=== PATIENT | male | born 1990 | race Caucasian/White ===

== ENCOUNTER 2021-06-19 03:45 | Observation (INO) | payer OTHER, SELFPAY ==
[2021-06-19] VITALS (14 sets, daily range): BP systolic 113–151; BP diastolic 64–94; PULSE 70–94; RESP 14–20; TEMP 36.2–37.7; O2SAT 96–100; BMI 29.1
--- NOTE | ~2021-06-19 | XR_ITS ---
XR retrograde pyelo w/stent RT DATE: 06/19/2021 17:18 INDICATION: Right stone extraction and stent placement TECHNIQUE: 06/19/[address] abdomen pelvis COMPARISON: 8 spot C-arm views. 29.8 seconds fluoroscopy time 367.82 radcm2 FINDINGS: Cystoscopic approach for right retrograde pyelogram, revealing mild to moderate right hydro nephrosis. Placement of a right internal urinary stent, proximal pigtail overlying the right renal pelvis, the d istal pigtail overlying the lower right pelvic area. IMPRESSION: Right internal urinary stent placement Reviewed, dictated and finalized at [facility]. Reviewed, dictated and finalized at [facility].
--- NOTE | ~2021-06-19 | CT_ITS ---
EXAMINATION: CT abdomen pelvis wo con DATE: 06/19/2021 04:08 INDICATION: Right flank pain and right scrotal pain. TECHNIQUE: Computed tomography (CT) of the abdomen and pelvis was performed without intravenous contr ast. Automated exposure control and iterative reconstruction technique were employed. The dose-length product was 756.70 mGy-cm. COMPARISON: 10/27/2016 FINDINGS: Lung bases are clear. Heart size is normal. No pericardial or pleural effusion. Focal hepatic steatos is along the ligamentum teres. Gallbladder, spleen, pancreas and bilateral adrenal glands are normal. 1 mm nonobstructing stone at the upper pole of the normal left kidney. There is an obstructing 3 mm stone in the mid to distal right ureter with mild to moderate right hydroureteronephrosis. Bladder is normal. Small bilateral hydroceles. Bowels including the appendix are normal. No free intraperitonea l gas or fluid. No pathologically enlarged abdominal or pelvic lymphadenopathy. 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 Bones are otherwise unremarkable. IMPRESSION: 1. Lateral nephrolithiasis with obstructing 3 mm right ureteral stone with mild to moderate right hyd roureteronephrosis. Reviewed, dictated and finalized at [facility]. IMPRESSION: 1. Lateral nephrolithiasis with obstructing 3 mm right ureteral stone with mild to moderate right hydroureteronephrosis.
--- NOTE | ~2021-06-19 | XR_ITS ---
EXAMINATION: XR abdomen/kub 1V DATE: 06/19/2021 07:13 INDICATION: Right ureteral stone presenting with right flank pain TECHNIQUE: A supine view of the abdomen on 2 radiographs was obtained. COMPARISON: CT dated 06/19/2021 FINDINGS: The 3 mm stone seen in the mid to distal right ureter is unable to be identified on the prior study. Correlation with prior CT suggests this could be due to its small size and superimposition over the s acrum. An additional tiny stone seen at the upper pole of the left kidney on prior CT is also indisce rnible on the plain radiographs. Normal bowel gas pattern. Bones are unremarkable. IMPRESSION: 1. Small renal stones evident at the upper pole of the left kidney and in the right ureter on prior C T are indistinguishable on the current radiographs. Reviewed, dictated and finalized at [facility]. IMPRESSION: 1. Small renal stones evident at the upper pole of the left kidney and in the r ight ureter on prior CT are indistinguishable on the current radiographs.
--- NOTE | 2021-06-19 03:56 | ED.ABDPAIN ---
HPI - Abdominal Pain General Chief Complaint: Abdominal Pain Stated Complaint: right side pain, testicular pain, vomiting Time Seen by Provider: 06/19/21 03:48 History of Present Illness HPI narrative: 30-year-old male with no significant past medical history complaining of sudden onset of right flank pain radiating to his right testicle. Also complains of sudden onset of vomiting. No fever, no hematemesis, no previous history of same. No scrotal swelling. No erythema, pain worse with nothing, improves with nothing. States this may be like when he had a renal stone before but last time he did radiated to his testicle. Pain is sharp, constant, colicky. Related Data Allergies Allergy/AdvReac Type Severity Reaction Status Date / Time No Known Allergies Allergy Verified 06/19/21 14:06 Review of Systems Review of Systems: CONSTITUTIONAL: no fever, no weight loss, no confusion EYES: no vision changes, no eye pain ENT: no rhinorrhea, no sore throat, no difficulty swallowing CARDIOVASCULAR: no chest pain, no leg edema, no palpitations RESPIRATORY: no cough, no shortness of breath, no hemoptysis GASTROINTESTINAL: positive for abdominal pain, positive for nausea, positive for vomiting, no diarrhea GENITOURINARY: R flank pain, no dysuria, no hematuria, no scrotal swelling SKIN: no rash, no jaundice MUSCULOSKELETAL: no back pain, no trauma. NEUROLOGIC: No headache, no dizziness, no focal weakness PSYCHIATRIC: No hallucinations, no suicidal ideation [facility] Past Medical History Medical History DVT (deep venous thrombosis) Social History Social History Smoking packs per day: 1 Smoking cigarettes per day: 20.0 Years smoked: 10 Smoking pack-years: 10.00 Smoking status: Current every day smoker Tobacco type: cigarettes Substance use: current Substance use type: marijuana Spiritual care concerns: No Exam Narrative: General: alert, afebrile, answering all questions appropriately Head: normocephalic, atraumatic Eyes: EOMI bilaterally, anicteric, no injection ENT: moist mucous membranes, oropharynx patent, no rhinorrhea Neck: supple, trachea midline, no JVD Chest: equal chest rise bilaterally, no chest wall trauma noted Abd: soft, non-distended, non-tender, no rebound, no gaurding, negative Miranda's, no hernia or abdominal masses noted : no CVA tenderness B, bladder non-distended; scrotal sac without erythema, no epididymal tend, no masses, no bulges Back: no lumbar bony tenderness. paraspinal muscles without spasm EXT: no deformity noted, moving all extremities equally Skin: warm, dry, no pallor Neuro: alert, oriented x 3; CN 2-12 grossly intact, no dysarthria Psych: affect appropriate, though content normal Course Course Emergency Course: Patient has received Toradol, morphine and fentanyl without relief of pain. Unable to tolerate p.o. currently. Pain not resolved. CT abdomen pelvis with ureteral stone in the mid ureter mid to distal ureter with mild hydro and a WBC of 16. Renal function is normal, creatinine is normal. However will bring patient in for pain control and possible urology consult. Patient aware and agrees with plan Reevaluation(s) Reevaluation #1: Patient still in pain unable to tolerate p.o. despite multiple medications including Zofran. Plan is to admit patient for pain control, UTI and renal colic Date: 06/19/21 Time: 06:12 Reevaluation #2: Spoke with Dr Salinas who will admit patient Date: 06/19/21 Time: 06:54 Reevaluation #3: Spoke with Dr Glover who wiill consult on patient, will keep patient NPO and get KB Date: 06/19/21 Time: 06:55 Vital Signs Vital signs: Vital Signs Temperature 36.6 C 06/19/21 03:54 Pulse Rate 70 06/19/21 03:54 Respiratory Rate 18 06/19/21 03:54 Blood Pressure 115/84 06/19/21 03:54 Pulse Oximetry 100 06/19/21 03:54 Temperature
[2021-06-19] MEDS: KETOROLAC 30 MG/ML VIAL (*BKC) IV PUSH (04:10)
[2021-06-19] MEDS: SODIUM CHLORIDE 0.9% IV 1,000 ML 999 ML IV CONT ×2 (04:10→05:38)
[2021-06-19] MEDS: ONDANSETRON INJ 4 MG/2 ML VIAL IV PUSH ×2 (04:10→08:04)
[2021-06-19 04:21] LABS: Basophils Absolute Auto 0.1 K/mm3 (0.0-0.1); Basophils Percent Auto 0.4 % (0.2-1.2); Eosinophils Absolute Auto 0.3 K/mm3 (0-0.3); Eosinophils Percent Auto 1.7 % (0-4.4); Hematocrit 43.7 % (42.0-52.0); Hemoglobin 15.1 g/dL (14.0-18.0); Immature Granulocyte Absolute 0.07 K/mm3 (0.00-0.031); Immature Granulocyte Percent A 0.4 % (0-0.5); Lymphocytes Absolute Auto 3.25 K/mm3 (0.9-3.2); Mean Corpuscular HGB Conc 34.6 g/dl (32-36); Mean Corpuscular Volume 89.7 fl (80-100); Mean Platelet Volume 9.9 fl (7.4-10.4); Neutrophils Absolute Auto 11.7 K/mm3 (1.3-6.7); Neutrophils Percent Auto 71.5 % (45.5-73.1); Platelet Count Result 346 k/mm3 (150-375); Red Blood Count 4.87 M/mm3 (4.6-6.20); Red Cell Distribution Width 12.2 % (11.5-14.5); White Blood Count 16.3 K/mm3 (4.5-10.0)
[2021-06-19] MEDS: MORPHINE SULFATE (*CRX) 4 MG/ML INJ IV PUSH ×6 (04:42→21:02)
[2021-06-19 05:02] LABS: Alanine Aminotransferase 33 U/L (4-50); Albumin Level 4.5 g/dL (3.5-5.1); Alkaline Phosphatase 86 U/L (38-126); Anion Gap 12 mmol/L (8-16); Aspartate Amino Transferase 23 U/L (17-59); Bilirubin,Total 0.6 mg/dL (0.2-1.3); Blood Urea Nitrogen 9 mg/dL (9-20); Calcium 9.6 mg/dL (8.4-10.2); Carbon Dioxide 24 mmol/L (22-30); Chloride 107 mmol/L (98-107); Estimated CRCL calculation 116 ml/min; Estimated Glomerular Filt Rate > 60; Glucose 146 mg/dL (65-110); Lipase 134 U/L (23-300); Potassium 3.6 mmol/L (3.4-5.0); Sodium 143 mmol/L (137-145)
[2021-06-19 05:54] LABS: Add Urine Microscopic? YES; Appearance Urine Clear (Clear); Bilirubin Urine Negative (Negative); Blood Urine 1+ (Negative); Color Urine Yellow (Yellow); Glucose Urine UA Negative (Negative); Ketones Urine Negative (Negative); Leukocyte Esterase Ur Negative LEU/UL (Negative); Mucus Urine Rare /lpf; Nitrate Urine Negative (Negative); Protein Urine Negative (Negative); RBC Urine 21-50 /hpf (0-2); Specific Grav Ur 1.015 (1.001-1.035); Urobilinogen Urine Negative mg/dL (<2.0); WBC Urine 0-3 /hpf
[2021-06-19] MEDS: fentaNYL CITRATE INJ (*CRX) 100 MCG/2 ML VIAL 25 MCG IV PUSH ×3 (05:59→18:00)
[2021-06-19] MEDS: HYDROmorphone HCL INJ (*CRX) 1 MG/ML SYR 0.5 MG IV PUSH (07:19)
[2021-06-19] MEDS: SODIUM CHLORIDE 0.9% IV 1,000 ML 125 ML IV CONT (08:15)
--- NOTE | 2021-06-19 09:21 | ADMGEN ---
This patient, Sanford Dickinson, was admitted to [facility] Surg Room 313-01. Patient/family oriented to hospital policies and general routines including ID bracelet, bed and alarms, visiting hours, pain management, procedures, bathroom and other care routines, personal items, smoking policy, room service/diet, and visiting hours. Information on how to activate the Rapid Response Team has been discussed. Patient/Family are encouraged to report perceived risks to care and to ask questions if they do not understand what they are told or what they should do.
--- NOTE | 2021-06-19 12:03 | PC.NURSE ---
4mg of morphine wasted with MARIA Wallis. Too early to give pain medication. Unable to return due to being opened and drawn up.
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
--- NOTE | 2021-06-19 14:03 | WPDHPUPDATE1 ---
History and Physical Update Update Date/Time: 06/19/21 14:03 History and Physical has been reviewed, including an updated exam of the patient. There are NO changes in the patient's condition. Risks, benefits, and alternatives have been discussed and questions answered. Patient agrees to proceed with procedure.
--- NOTE | 2021-06-19 15:14 | PM.SD2 ---
Same Day Admit/Disch: HPI History of Present Illness Chief complaint: renal colic Narrative: Sanford Dickinson is a 30 year old male admitted with R sided renal colic hurting in the right flank radiating to his scrotum. Pt wcc are high not uti is not likley possibly stress related leucocytosis. BMP is nl, CT scan shows a 3mm right distal ureteral stone with moderate right proximal hydronephrosis and a left punctate non obstructive stone. Pt is going down for Cystoscopy, right ureteroscopy with stone extraction possible stent placement, right retrograde pyelogram, possible holmium laser. Pt can be discharged home after the procedure with mild pain medications and follow up with urology apt. [facility] Social History Social History Smoking packs per day: 1 Smoking cigarettes per day: 20.0 Years smoked: 10 Smoking pack-years: 10.00 Smoking status: Current every day smoker Tobacco type: cigarettes Substance use: current Substance use type: marijuana Spiritual care concerns: No Same Day Admit/Disch: Med Pre-admit Medications Home Medications Medication Instructions Recorded Confirmed Type No Home Medications 06/19/21 06/19/21 History Exam Const: General: well developed Nutritional Appearance: well nourished HENMT: Head: normocephalic Eyes: General: appearance normal, both eyes and all related structures Pupils: Equal, round and reactive pupils present Neck: Neck: supple Chest: Chest palpation & inspection: normal inspection of the chest Resp: Effort & Inspection: normal respiratory effort Auscultation: clear to auscultation bilaterally Cardio: Jugular venous distension: no JVD Rhythm: regular rhythm Heart sounds: S1 normal heart sound present and S2 normal heart sound present GI: Inspection: normal to inspection GI Palp: No abdominal tenderness, Yes Soft to palpation and No Tenderness to palpation present (GI) Auscultation: normal bowel sounds : General: Yes CVA tenderness (R FLANK ) Skin: General skin exam: normal color and dry skin Neuro: Cranial nerves: Yes CN's II-XII intact bilaterally and Yes Equal, round and reactive pupils present Cognition (Neuro): normal cognition Speech: normal speech Motor exam (neuro): 5/5 motor strength present throughout Extrem: General: normal to inspection Psych: Appearance: grossly normal Mental Status: mental status grossly normal DS: Data Data Completed and Pending Labs on day of discharge: Labs from last 24 hours 06/19/21 06/19/21 06/19/21 05:27 03:57 03:57 WBC 16.3 H RBC 4.87 Hgb 15.1 Hct 43.7 MCV 89.7 MCH 31.0 MCHC 34.6 RDW 12.2 Plt Count 346 MPV 9.9 Immature Gran % (Auto) 0.4 Neut % (Auto) 71.5 Lymph % (Auto) 20.0 [place] % (Auto) 6.0 Eos % (Auto) 1.7 Baso % (Auto) 0.4 Lymph # (Auto) 3.25 H [place] # (Auto) 1.0 H Eos # (Auto) 0.3 Baso # (Auto) 0.1 Abs Immat Gran (auto) 0.07 H Absolute Neuts (auto) 11.7 H Absolute Nucleated RBC 0.0 Nucleated RBC % 0.0 Sodium 143 Potassium 3.6 Chloride 107 Carbon Dioxide 24 Anion Gap 12 BUN 9 Creatinine 0.80 Estim Creat Clear Calc 116 Estimated GFR > 60 Glucose 146 H Calcium 9.6 Total Bilirubin 0.6 AST 23 ALT 33 Alkaline Phosphatase 86 Total Protein 7.0 Albumin 4.5 Lipase 134 Urine Color Yellow Urine Appearance Clear Urine pH 6.0 Ur Specific [place] 1.015 Urine Protein Negative Urine Glucose (UA) Negative Urine Ketones Negative Ur Blood (Man) 1+ H Urine Nitrate Negative Urine Bilirubin Negative Urine Urobilinogen Negative Leukocyte Esterase Rfl Negative Urine RBC 21-50 H Urine WBC 0-3 Urine Mucus Rare DS: Summary Time Spent with Patient Time attestation: Total time spent providing and/or coordinating discharge services:45 minutes on day of dischrage
--- NOTE | 2021-06-19 16:27 | WPDANESEPPF ---
Anes - Initial Pre Proc Eval Procedure: Operation Date: 06/19/21 15:30 Proposed Procedures p Cystoscopy, Right Retrograde Pyelogram, Possible Right Ureteroscopy, Possible Right Ureteral Stent Placement, Possible Stone Extraction, Possible Holmium Laser Lithotripsy - Juan Glover MD Date/Time: 06/19/21 16:27 Surgeon: Ivelisse Salinas MD Pre Op Diagnosis: renal colic Patient Data Age: 30 Gender: M Height: 1.83 m Weight: 97.5 kg Last Vital Signs Temp 36.5 C 06/19/21 14:00 Pulse 75 06/19/21 14:00 Resp 18 06/19/21 14:00 BP 113/64 06/19/21 14:00 Pulse Ox 96 06/19/21 14:00 Allergies Allergy/AdvReac Type Severity Reaction Status Date / Time No Known Allergies Allergy Verified 06/19/21 14:06 Home Medications Medication Instructions Recorded Confirmed Type No Home Medications 06/19/21 06/19/21 History Laboratory Tests 06/19/21 06/19/21 06/19/21 03:57 03:57 05:27 WBC 16.3 K/mm3 H K/mm3 (4.5-10.0) RBC 4.87 M/mm3 M/mm3 (4.6-6.20) Hgb 15.1 g/dL g/dL (14.0-18.0) Hct 43.7 % % (42.0-52.0) MCV 89.7 fl fl (80-100) MCH 31.0 pg pg (26-34) MCHC 34.6 g/dl g/dl (32-36) RDW 12.2 % % (11.5-14.5) Plt Count 346 k/mm3 k/mm3 (150-375) MPV 9.9 fl fl (7.4-10.4) Immature Gran % (Auto) 0.4 % % (0-0.5) Neut % (Auto) 71.5 % % (45.5-73.1) Lymph % (Auto) 20.0 % % (18.3-44.2) [place] % (Auto) 6.0 % % (2.6-8.5) Eos % (Auto) 1.7 % % (0-4.4) Baso % (Auto) 0.4 % % (0.2-1.2) Lymph # (Auto) 3.25 K/mm3 H K/mm3 (0.9-3.2) [place] # (Auto) 1.0 K/mm3 H K/mm3 (0.1-0.6) Eos # (Auto) 0.3 K/mm3 K/mm3 (0-0.3) Baso # (Auto) 0.1 K/mm3 K/mm3 (0.0-0.1) Abs Immat Gran (auto) 0.07 K/mm3 H K/mm3 (0.00-0.031) Absolute Neuts (auto) 11.7 K/mm3 H K/mm3 (1.3-6.7) Absolute Nucleated RBC 0.0 K/mm3 K/mm3 (0.0-0.012) Nucleated RBC % 0.0 % % (0.0-0.2) Sodium 143 mmol/L mmol/L (137-145) Potassium 3.6 mmol/L mmol/L (3.4-5.0) Chloride 107 mmol/L mmol/L (98-107) Carbon Dioxide 24 mmol/L mmol/L (22-30) Anion Gap 12 mmol/L mmol/L (8-16) BUN 9 mg/dL mg/dL (9-20) Creatinine 0.80 mg/dL mg/dL (0.7-1.3) Estim Creat Clear Calc 116 ml/min ml/min Estimated GFR > 60 (59 - ) Glucose 146 mg/dL H mg/dL (65-110) Calcium 9.6 mg/dL mg/dL (8.4-10.2) Total Bilirubin 0.6 mg/dL mg/dL (0.2-1.3) AST 23 U/L U/L (17-59) ALT 33 U/L U/L (4-50) Alkaline Phosphatase 86 U/L U/L (38-126) Total Protein 7.0 g/dL g/dL (6.3-8.2) Albumin 4.5 g/dL g/dL (3.5-5.1) Lipase 134 U/L U/L (23-300) Urine Color Yellow (Yellow) Urine Appearance Clear (Clear) Urine pH 6.0 (5.0-9.0) Ur Specific [place] 1.015 (1.001-1.035) Urine Protein Negative mg/dL mg/dL (Negative) Urine Glucose (UA) Negative mg/dL mg/dL (Negative) Urine Ketones Negative mg/dL mg/dL (Negative) Ur Blood (Man) 1+ H (Negative) Urine Nitrate Negative (Negative) Urine Bilirubin Negative (Negative) Urine Urobilinogen Negative mg/dL mg/dL (<2.0) Leukocyte Esterase Rfl Negative ARELIS/UL ARELIS/UL (Negative) Urine RBC 21-50 /hpf H /hpf (0-2) Urine WBC 0-3 /hpf /hpf Urine Mucus Rare /lpf /lpf Patient hx anesthesia problems: none Family hx anesthesia problems: none Results Review: All pre-operative results and documents have been reviewed as part of the pre-operative evaluation. [facility] Past Medical History Medical History (Reviewed 06/19/21 @ 16:27 by Tani
[2021-06-19] MEDS: LACTATED RINGERS 1,000 ML 30 ML IV CONT (16:30)
[2021-06-19] MEDS: LIDOCAINE HCL 2% GEL UROJET 10 ML PKG MUCOUS MEM (16:50)
--- NOTE | 2021-06-19 17:13 | W.PM.PROC2 ---
Procedure Note - Detailed Date of Procedure 06/19/21 Pre-op Diagnosis renal colic, 3-4 mm right mid ureteral calculus Post-op Diagnosis same Procedure Performed Cystoscopy, right retrograde pyelogram, right ureteroscopy with stone extraction, right ureteral stent placement 4.8 [place] contour Surgeon Juan Glover MD Anesthesia general Description of Procedure Patient is taken to the operative suite correctly identified. Once anesthesia was obtained was placed in dorsal lithotomy position and prepped and draped usual sterile fashion. Twenty-two [place] scope was inserted into the bladder. There were no tumors noted. Right ureteral orifice was cannulated with a guidewire. We dilated with an 8/10 dilator and then placed a ureteral access sheath. Mini flexible ureteral scope was inserted. The stone was localized. Using escape basket retrieved as 1 piece. This was sent for analysis. It did appear that there was some mucosal disruption from placement of the ureteral access sheath. We thus did a pyelogram to confirm placement of the stent in the renal pelvis. 4.8 [place] contour stent was then placed with the proximal end coiled in the renal pelvis and the distal in the bladder. Bladder was drained. 2% viscous lidocaine was inserted urethra patient is taken recovery stable condition. He can be discharged home later today if stable otherwise in the morning. Follow-up in 1 week time for stent removal. Call for that appointment. Urine Output 475 Drains Yes Packing No Pathology yes Complications No immediate complications Condition stable Disposition PACU
--- NOTE | 2021-06-19 18:20 | PC.NURSE ---
This patient, Sanford Dickinson, was received from PACU on 06/19/21 at 1820, report received from MARIA Hardy. Patient/family oriented to unit policies and routines
[2021-06-20 06:00] VITALS: BP 125/79; PULSE 76; RESP 18; TEMP 36.4; O2SAT 100
[2021-06-20] MEDS: IBUPROFEN 600 MG TABLET PO (08:37)
[2021-06-20] MEDS: OXYBUTYNIN CHLORIDE 5 MG TABLET PO (08:39)
--- NOTE | 2021-06-20 09:19 | WPDANESPN ---
Anes - Prog Note Post-Op Date/Time: 06/20/21 09:19 Cardiovascular status: normal Respiratory status: normal Airway patency: baseline Mental status: baseline Vital Signs: Last Vital Signs Temp 36.4 C 06/20/21 06:00 Pulse 76 06/20/21 06:00 Resp 18 06/20/21 06:00 BP 125/79 06/20/21 06:00 Pulse Ox 100 06/20/21 06:00 Pain Score (VAS): 0 I/O: Intake & Output 06/19/21 06/20/21 06/20/21 23:59 07:59 15:59 Intake Total 1500 0 Output Total 950 Balance 550 0 Laboratory Tests 06/19/21 03:57 06/19/21 03:57 Post-procedural complaints: none Patient Feedback: Patient satisfied with anesthetic care.
--- NOTE | 2021-06-20 13:07 | WPDUROPN2 ---
Progress Note: A&P Assessment and Plan (1) Ureteral calculus, right: Code(s): N20.1 - Calculus of ureter Status: Acute Assessment and Plan: Patient ok to discharge home, will plan to remove stent next week in the office. Subjective Subjective Date/Time Seen: POD #1 Cystoscopy right retrograde pyelogram, right ureteral stone removal, right stent placement. Patient sitting up on the side of the bed, tolerating pain better with Torodol and Oxybutynin. He is having stent pain with urination that lasts about 20 minutes after with radiation to his scrotum. He is tolerating his diet well and wants to go home. Review of Systems Cardiovascular: Cardiovascular: Denies chest pain Respiratory: Respiratory: Reports no additional respiratory complaints Gastrointestinal: Gastrointestinal: Denies abdominal pain, Denies nausea and Denies vomiting Genitourinary: Genitourinary: Denies hematuria, Reports dysuria, Reports flank pain, Denies urinary frequency, Denies urinary hesitancy and Denies urinary urgency Exam Resp: Effort & Inspection: normal respiratory effort Cardio: Rate: regular rate GI: GI Palp: Yes Soft to palpation and Yes Tenderness to palpation present (GI) (RLQ) : General: Yes CVA tenderness on the right Extrem: General: no edema Objective Data Vital Signs Vital Signs: Vital Signs - 24 hr 06/19/21 14:00 06/19/21 16:18 06/19/21 17:18 Temperature 97.7 F 99.8 F H 97.1 F L Pulse Rate 75 85 94 Respiratory Rate 18 16 20 Blood Pressure 113/64 128/85 130/81 Pulse Oximetry 96 97 99 06/19/21 17:30 06/19/21 17:45 06/19/21 18:00 Temperature Pulse Rate 82 82 89 Respiratory Rate 16 14 16 Blood Pressure 151/94 H 149/87 H 132/76 Pulse Oximetry 100 98 99 06/19/21 18:15 06/19/21 18:41 06/19/21 22:00 Temperature 97.7 F 97.6 F Pulse Rate 86 79 80 Respiratory Rate 16 20 18 Blood Pressure 136/88 147/89 H 115/65 Pulse Oximetry 97 98 98 06/20/21 06:00 Temperature 97.6 F Pulse Rate 76 Respiratory Rate 18 Blood Pressure 125/79 Pulse Oximetry 100 Intake/Output Intake/Output: Intake & Output 06/17/21 06/18/21 06/19/21 06/20/21 23:59 23:59 23:59 23:59 Intake Total 3650 100 Output Total 950 Balance 2700 100 Meds/Results Medications: Active Medications Generic Name Dose Route Start Last Admin Trade Name Freq PRN Reason Stop Dose Admin Ibuprofen 600 mg 06/19/21 18:53 06/20/21 08:37 Ibuprofen 600 Mg Tablet PO 600 mg TID PRN Administration Pain Rated 1-3 Morphine Sulfate 4 mg 06/19/21 07:34 06/19/21 21:02 Morphine Sulfate (*Crx) 4 Mg/Ml Inj IV PUSH 4 mg Q2H PRN Administration Pain Rated 7-10 Ondansetron HCl 4 mg 06/19/21 07:34 06/19/21 08:04 Ondansetron Inj 4 Mg/2 Ml Vial IV PUSH 4 mg Q4H PRN Administration Nausea Oxybutynin Chloride 5 mg 06/20/21 09:43 Oxybutynin Chloride 5 Mg Tablet PO TID PRN Bladder Spasm Radiology Results: ITS Impressions Abdomen X-Ray 06/19/21 07:19 IMPRESSION: 1. Small renal stones evident at the upper pole of the left kidney and in the right ureter on prior CT are indistinguishable on the current radiographs. Abdomen/Pelvis CT 06/19/21 07:50 IMPRESSION: 1. Lateral nephrolithiasis with obstructing 3 mm right ureteral stone with mild to moderate right hydroureteronephrosis. Retrograde Pyelogram 06/19/21 21:53 IMPRESSION: Right internal urinary stent placement
== END 2021-06-20 13:40 | disposition home or self-care (01) ==
LOC: ANHED 07:50 → ANH3MEDSUR 11:32
PROVIDERS: Urology; Admitting Provider Internal Medicine; Emergency Provider Emergency Medicine; Visit Provider Family Medicine
PROC: (CPT 52352; principal; 2021-06-19 15:30)
DX: N13.2 Hydronephrosis with renal and ureteral calculous obstruction (principal); F17.210 Nicotine dependence, cigarettes, uncomplicated; Z86.718 Personal history of other venous thrombosis and embolism
CPT/HCPCS: 52356; 36415; 74018; 74176; 74420; 80053; 81001; 82365; 83690; 85025; 88300; 96361; 96365; 96367; 96375; 96376; 99285; A9270; C1758; C1769; C1894; C2617; G0378; G0379; J0131; J0696; J1170; J1885; J2250; J2270; J2405; J2704; J3010; J7030; J7120; Q9966

== ENCOUNTER 2022-06-16 02:40 | Emergency (ER) | payer OTHER, SELFPAY ==
[2022-06-16] VITALS (7 sets, daily range): BP systolic 126–148; BP diastolic 77–105; PULSE 78–82; RESP 17–22; TEMP 36.6; O2SAT 96–98
--- NOTE | ~2022-06-16 | CT_ITS ---
EXAMINATION: CT abdomen pelvis wo con DATE: 06/16/2022 04:35 INDICATION: Right flank pain TECHNIQUE: Computed tomography (CT) of the abdomen and pelvis was performed without intravenous contr ast. The dose-length product was 843.50 mGy-cm. Automated exposure control and iterative reconstructi on technique were employed. COMPARISON: CT dated 06/19/2021. FINDINGS: Lung bases are unremarkable. No significant pleural or pericardial effusion. The liver, spl een, pancreas, adrenal glands and right kidney are unremarkable. There is a 3 mm left UVJ stone with mild left hydroureteronephrosis. There is left perinephric stranding. There is a nonobstructing 1 mm left renal stone. Nonobstructive bowel gas pattern. No abnormal pelvic masses or fluid collections. N o free air or free fluid. Gallbladder is present. No acute osseous abnormality. IMPRESSION: 1. Left UVJ stone measuring 3 mm with mild left hydroureteronephrosis. Reviewed, dictated and finalized at location A.
--- NOTE | 2022-06-16 03:18 | ED.GENADULT ---
HPI - General Adult General Chief complaint: Abdominal Pain Stated complaint: L testicle pain Time Seen by Provider: 06/16/22 03:10 History of Present Illness HPI narrative: Patient is a 31-year-old gentleman who presents the emergency department with chief complaint of flank pain. The patient reports he has prior history of kidney stones and last one was in June of last year. Patient reports that he had sudden onset of around midnight of severe pain in the left flank radiating to his left testicle patient states the pain is not improved by anything reports that he feels nauseated and vomited in the lobby prior to coming back in the room. Patient reports he is unable to get comfortable in any position reports the pain is not improved by anything. Patient reports this feels exactly like when he had a kidney stone before in the past Related Data Allergies Allergy/AdvReac Type Severity Reaction Status Date / Time No Known Allergies Allergy Verified 06/22/21 09:13 Review of Systems Review of Systems: A 10 system review of systems was completed on the patient and is negative except for what is stated in the HPI. Nursing and ancillary documentation was reviewed. [facility] Past Medical History Medical History DVT (deep venous thrombosis) Social History Social History Smoking packs per day: 1 Smoking cigarettes per day: 20.0 Years smoked: 10 Smoking pack-years: 10.00 Smoking status: Current every day smoker Tobacco type: cigarettes Alcohol intake: current Substance use: current Substance use type: marijuana Spiritual care concerns: No Exam Narrative: GENERAL: Patient appears to be in moderate pain distress unable to be comfortable during the exam.. HEAD: Normocephalic, atraumatic. EYES: PERRLA and EOMI. ENT: Nares clear, no rhinorrhea or epistaxis. Mucous membranes moist. NECK: Supple. CHEST: Clear to auscultation. No respiratory distress. HEART: Regular rate and rhythm. No murmur heard. Normal peripheral pulses. ABDOMEN: Soft, nontender, nondistended, normal active bowel sounds. EXTREMITIES: Normal range of motion. No edema. SKIN: Warm, dry, no rash. NEURO: No focal deficits. Alert and oriented x3. PSYCH: Normal mood and affect. Course Vital Signs Vital signs: Vital Signs Temperature 36.6 C 06/16/22 03:01 Pulse Rate 78 06/16/22 03:01 Respiratory Rate 22 H 06/16/22 03:01 Blood Pressure 137/105 H 06/16/22 03:01 Pulse Oximetry 97 06/16/22 03:01 Oxygen Delivery Room Air 06/16/22 03:01 Temperature 36.6 C 06/16/22 03:01 Pulse Rate 78 06/16/22 03:01 Respiratory Rate 22 H 06/16/22 03:01 Blood Pressure 137/105 H 06/16/22 03:01 Pulse Oximetry 97 06/16/22 03:01 Oxygen Delivery Room Air 06/16/22 03:01 Medical Decision Making Vital Signs Vital Signs: Vital Signs Temperature 36.6 C 06/16/22 03:01 Pulse Rate 78 06/16/22 03:01 Respiratory Rate 22 H 06/16/22 03:01 Blood Pressure 137/105 H 06/16/22 03:01 Pulse Oximetry 97 06/16/22 03:01 Oxygen Delivery Room Air 06/16/22 03:01 Temperature 36.6 C 06/16/22 03:01 Pulse Rate 78 06/16/22 03:01 Respiratory Rate 22 H 06/16/22 03:01 Blood Pressure 137/105 H 06/16/22 03:01 Pulse Oximetry 97 06/16/22 03:01 Oxygen Delivery Room Air 06/16/22 03:01 Lab Data Result diagrams: 06/16/22 03:24 06/16/22 03:24 Labs: Lab Results 06/16/22 06/16/22 06/16/22 Range/Units 03:24 03:24 05:09 WBC 16.1 H (4.5-10.0) K/mm3 RBC 5.12 (4.6-6.20) M/mm3 Hgb 15.4 (14.0-18.0) g/dL Hct 45.5 (42.0-52.0) % MCV 88.9 (80-100) fl MCH 30.1 (26-34) pg MCHC 33.8 (32-36) g/dl RDW 12.0 (11.5-14.5) % Plt Count 306 (150-375) k/mm3 MPV 9.8 (7.4-10.4) fl Immature Gran % (Auto) 0.6 H (0-0.5) %
[2022-06-16] MEDS: SODIUM CHLORIDE 0.9% IV 1,000 ML 999 ML IV CONT (03:21)
[2022-06-16] MEDS: ONDANSETRON INJ 4 MG/2 ML VIAL IV PUSH (03:21)
[2022-06-16] MEDS: HYDROmorphone HCL INJ (*CRX) 1 MG/ML SYR IV PUSH ×3 (03:21→05:06)
[2022-06-16 03:29] LABS: Basophils Absolute Auto 0.1 K/mm3 (0.0-0.1); Basophils Percent Auto 0.4 % (0.2-1.2); Eosinophils Absolute Auto 0.2 K/mm3 (0-0.3); Eosinophils Percent Auto 1.1 % (0-4.4); Hematocrit 45.5 % (42.0-52.0); Hemoglobin 15.4 g/dL (14.0-18.0); Immature Granulocyte Absolute 0.09 K/mm3 (0.00-0.031); Immature Granulocyte Percent A 0.6 % (0-0.5); Lymphocytes Percent Auto 11.2 % (18.3-44.2); Mean Corpuscular HGB Conc 33.8 g/dl (32-36); Mean Corpuscular Hemoglobin 30.1 pg (26-34); Mean Corpuscular Volume 88.9 fl (80-100); Mean Platelet Volume 9.8 fl (7.4-10.4); Monocytes Absolute Auto 0.7 K/mm3 (0.1-0.6); Monocytes Percent Auto 4.3 % (2.6-8.5); Neutrophils Absolute Auto 13.2 K/mm3 (1.3-6.7); Neutrophils Percent Auto 82.4 % (45.5-73.1); Platelet Count Result 306 k/mm3 (150-375); Red Blood Count 5.12 M/mm3 (4.6-6.20); White Blood Count 16.1 K/mm3 (4.5-10.0)
[2022-06-16] MEDS: PROCHLORPERAZINE EDISYLATE 10 MG/2 ML VIAL IV PUSH (03:33)
[2022-06-16 03:41] LABS: Alanine Aminotransferase 21 U/L (6-50); Albumin Level 4.7 g/dL (3.5-5.1); Alkaline Phosphatase 68 U/L (38-126); Anion Gap 9 mmol/L (8-16); Aspartate Amino Transferase 33 U/L (17-59); Bilirubin,Total 0.4 mg/dL (0.2-1.3); Blood Urea Nitrogen 17 mg/dL (9-20); Calcium 8.6 mg/dL (8.4-10.2); Carbon Dioxide 28 mmol/L (22-30); Chloride 103 mmol/L (98-107); Estimated CRCL calculation 116 ml/min; Estimated Glomerular Filt Rate > 60; Glucose 112 mg/dL (65-110); Potassium 4.2 mmol/L (3.4-5.0); Sodium 140 mmol/L (137-145)
[2022-06-16] MEDS: fentaNYL CITRATE INJ (*CRX) 100 MCG/2 ML VIAL 50 MCG IV PUSH (03:59)
--- NOTE | 2022-06-16 04:17 | PC.NURSE ---
Patient taken to CT.
[2022-06-16] MEDS: KETOROLAC 15 MG/ML VIAL (*BKC) IV PUSH (05:05)
[2022-06-16 05:24] LABS: Appearance Urine Clear (Clear); Bilirubin Urine Negative (Negative); Blood Urine 2+ (Negative); Color Urine Yellow (Yellow); Glucose Urine UA Negative (Negative); Ketones Urine 1+ mg/dL (Negative); Leukocyte Esterase Ur Negative LEU/UL (Negative); Nitrate Urine Negative (Negative); Protein Urine Negative (Negative); Specific Grav Ur 1.025 (1.001-1.035); Urobilinogen Urine 0.2 mg/dL (<2.0); pH Urine 6.5 (5.0-9.0)
[2022-06-16 05:29] LABS: Mucus Urine Rare /lpf; WBC Urine 0-3 /hpf
[2022-06-16 05:30] LABS: Add Urine Microscopic? YES
== END 2022-06-16 06:07 | disposition home or self-care (01) ==
PROVIDERS: Emergency Provider Emergency Medicine
DX: N13.2 Hydronephrosis with renal and ureteral calculous obstruction (principal); Z86.718 Personal history of other venous thrombosis and embolism; F17.210 Nicotine dependence, cigarettes, uncomplicated; Z87.442 Personal history of urinary calculi
CPT/HCPCS: 36415; 74176; 80053; 81001; 85025; 96361; 96374; 96375; 96376; 99284; J0780; J1170; J1885; J2405; J3010; J7030

== ENCOUNTER 2024-06-18 12:15 | Emergency (ER) | payer OTHER, SELFPAY ==
--- NOTE | 2024-06-18 12:26 | ED_ITS ---
HPI - Extremity Problem General Chief complaint: Skin/Abscess/Foreign Body Stated complaint: R arm numb, bite on wrist Time Seen by Provider: 06/18/24 12:35 Source: patient Mode of arrival: ambulatory Limitations: no limitations History of Present Illness HPI Narrative: Henry is a 33-year-old male patient presenting to the clinic today with complaints of right thumb numbness. He reports that symptoms started yesterday when he woke up with some right arm, hand, and finger numbness. He reports all the numbness has resolved however he still having some numbness in his right thumb. Feels as though it is trying to wake up after being asleep. He also is concerned about a rash to the top of the right wrist and thinks that might be related. Is concerned about possibly a spider bite. He denies any neck pain, shoulder pain, or elbow pain. 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 Related Data Allergies Allergy/AdvReac Type Severity Reaction Status Date / Time No Known Allergies Allergy Verified 06/18/24 12:36 Review of Systems Review of Systems: Pertinent positives per HPI. Patient denies any fever, chills, rash, headache, visual changes, dizziness, cough, runny nose, sore throat, shortness of breath, chest pain, palpitations, nausea, vomiting, diarrhea, constipation, abdominal pain, or any urinary issues. [facility] Past Medical History Medical History DVT (deep venous thrombosis) Social History Social History Smoking packs per day: 1 Smoking cigarettes per day: 20.0 Years smoked: 10 Smoking pack-years: 10.00 Smoking status: Current every day smoker Tobacco type: cigarettes Alcohol intake: current Substance use: current Substance use type: marijuana Spiritual care concerns: No Comments At the time of my signature, I reviewed and agree with the nursing past medical, surgical, social, and family history. There is no relevant family history pertinent to the patient complaint. Exam Narrative: General: Well-developed, well nourished, in no apparent distress Head: Normocephalic, atraumatic. Cardio: Regular rate and rhythm, s1 and s2 normal, no murmur appreciated. Resp: Clear to auscultation bilaterally, no rhonchi, rales, wheezing or rubs. Musculoskeletal: No deformity, numbness/tingling to the right thumb, positive right radial/ulnar Tinel's sign, negative Phalen sign, negative [place], non-tender to palpation, weak right hand grasp when compared to the left, states he is having difficulty with extension of the wrist, but is moving his wrist while interacting with provider, right thumb warm and dry, peripheral pulse strong, no edema, no cyanosis, normal gait and station Integumentary: [place], warm, and dry, intact without lesion, red slightly raised circular scaly rash with central clearing to the right dorsal wrist Course Course Emergency Course: Portions of this record may have been created with voice recognition software. Level of Care: Express Care Visit Vital Signs Vital signs: Vital signs reviewed MDM - Extremity (Nontraumatic) MDM Narrative Medical decision making narrative: At the time of visit patient is resting comfortably on the exam table. Patient appears to be nontoxic. Plan: I suspect patient may have some nerve inflammation to the right radial wrist as well as tinea corpus. Will place the patient on a clotrimazole and a Medrol Dosepak. Discussed use of a cock-up wrist splint and follow-up with his primary care doctor if symptoms do not improve for further evaluation-possible EMG testing to rule out carpal tunnel syndrome. 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 Supportive measures were discussed with the patient and they voiced understanding discharge instructions and agrees to treatment plan. Return precautions reviewed Differential Diagnosis Differential diagnosis: Likely gout, cellulitis and other (Wrist tendinitis, nerve inflammation, neck injury, elbow tendinitis, carpal tunnel syndrome) Discharge Plan Discharge Clinical Impression: Paresthesia of right thumb, Right hand weakness, Tinea corporis Patient Disposition: Home, Self-Care Condition: Stable Instructions: Antibiotic Form, Tinea Corporis (ED), Paresthesia (ED) Additional Instructions: I suspect you have nerve inflammation to the right radial nerve. Apply clotrimazole cream to the fungal infection on the right wrist twice a day x4 weeks Wear cock-up wrist splint x1 week-can pick this up from [facility], [facility], or [facility] Rest, ice, and elevate Take Medrol Dosepak as prescribed May take Tylenol/Motrin as needed for pain Follow-up with your primary care doctor and 3-5 days-may need to have EMG study to rule out carpal tunnel syndrome Prescriptions: New methylprednisolone [Medrol (Chris)] 4 mg tablets,dose pack See Rx Instructions PO .COMPLEX Qty: 21 0RF Rx Instructions: orally per package directions clotrimazole 1 % cream 1 applic topical BID 28 Days Qty: 45 0RF Follow-up/Referrals: PHYSICIAN,ASSISTANT SALES DIRECTOR [Primary Care Provider] - Stand Alone Forms: Work/School Release IP Time of Disposition: 12:49 Quality NIHSS Nursing Documentation ED NIHSS nursing documentation: reviewed/agree
[2024-06-18 12:32] VITALS: BP 108/90; PULSE 110; RESP 18; TEMP 36.2; O2SAT 99
== END 2024-06-18 13:03 | disposition home or self-care (01) ==
PROVIDERS: Emergency Provider Nurse Practitioner Family
DX: R20.2 Paresthesia of skin (principal); R53.1 Weakness; B35.4 Tinea corporis; F17.210 Nicotine dependence, cigarettes, uncomplicated; F12.90 Cannabis use, unspecified, uncomplicated; Z86.718 Personal history of other venous thrombosis and embolism
CPT/HCPCS: 99213; G0463

== ENCOUNTER 2025-04-26 12:29 | Emergency (ER) | payer OTHER, SELFPAY ==
[2025-04-26 12:37] VITALS: BP 142/95; PULSE 99; RESP 20; TEMP 36.9; O2SAT 96
--- NOTE | 2025-04-26 12:38 | ED_ITS ---
HPI - General Adult General Chief complaint: Unspecified Stated complaint: mouth irritation Related Data Home Medications ?Medication ?Instructions ?Recorded ?Confirmed ?Last Taken ?Type No Home Medications 04/26/25 04/26/25 U marilee History Allergies Allergy/AdvReac Type Severity Reaction Status Date / Time No Known Allergies Allergy Verified 04/26/25 12:31 [facility] Past Medical History Medical History DVT (deep venous thrombosis) Social History Social History Smoking packs per day: 1 Smoking cigarettes per day: 20.0 Years smoked: 10 Smoking pack-years: 10.00 Smoking status: Current every day smoker Tobacco type: cigarettes Alcohol intake: current Substance use: current Substance use type: marijuana Spiritual care concerns: No Discharge Plan Discharge Patient Language: Upper Sorbian Prescriptions: No Action No Home Medications Follow-up/Referrals: UNKNOWN,DOCTOR [Primary Care Provider]
--- NOTE | 2025-04-26 12:41 | ED.DENTAL ---
HPI - Dental/Oral General Chief complaint: Dental/Oral Stated complaint: mouth irritation Time Seen by Provider: 04/26/25 12:42 Source: patient Mode of arrival: ambulatory Limitations: no limitations History of Present Illness HPI Narrative: 34-year-old male presents concern for right lower dental pain and swelling. He reports he is currently working with normal surgeon get his teeth pulled. He denies problems swallowing. Denies fever. MD Complaint: tooth pain Related Data Allergies Allergy/AdvReac Type Severity Reaction Status Date / Time No Known Allergies Allergy Verified 04/26/25 12:31 Review of Systems Review of Systems: CONSTITUTIONAL: Denies malaise, chills, sweats, or fever. EYES: Denies visual changes ENT: Denies rhinorrhea, congestion, sinus pain, otalgia or sore throat. Reports right lower dental pain CARDIOVASCULAR: Denies chest pain, palpitations RESPIRATORY: Denies cough or dyspnea. SKIN: Denies rash or itching. MUSCULOSKELETAL: Denies myalgia. NEUROLOGIC: Denies numbness, weakness, or headache. All systems reviewed & are unremarkable except as noted in HPI and below PMFSH Past Medical History Medical History DVT (deep venous thrombosis) Social History Social History Smoking packs per day: 1 Smoking cigarettes per day: 20.0 Years smoked: 10 Smoking pack-years: 10.00 Smoking status: Current every day smoker Tobacco type: cigarettes Alcohol intake: current Substance use: current Substance use type: marijuana Spiritual care concerns: No Comments At time of signature, agree with nursing past medical, surgical, social and family history. There is no relevant family history pertinent to the presenting complaint Exam Narrative: GENERAL: Well-appearing, well-nourished, and in no acute distress. HEAD: Normocephalic, atraumatic. EYES: PERRLA, sclera clear ENT: Nares clear, turbinates pink, no rhinorrhea or epistaxis. Mucous membranes moist. TM pearly ponce with sharp light reflex bilaterally; no tragal tenderness. Oropharynx without erythema or lesions. Tonsils not enlarged and without exudate. Right jaw swelling noted, caries noted NECK: Supple. No lymphadenopathy. CHEST: No respiratory distress. Speaks in full sentences. HEART: Regular rate and rhythm. SKIN: Warm, dry, no visible rash. NEURO: Alert and oriented x3. PSYCH: Normal mood and affect Course Course Emergency Course: Patient is aware of diagnosis, understands and agrees to treatment plan. Anticipatory guidance given. Patient agrees to follow-up as directed and is aware of reasons to seek care at the emergency department. Portions of this record may have been created with voice recognition software Level of Care: Express Care Visit Vital Signs Vital signs: Vital Signs Temperature 98.4 F 04/26/25 12:37 Pulse Rate 99 04/26/25 12:37 Respiratory Rate 20 04/26/25 12:37 Blood Pressure 142/95 H 04/26/25 12:37 Pulse Oximetry 96 04/26/25 12:37 Oxygen Delivery Room Air 04/26/25 12:37 Temperature 98.4 F 04/26/25 12:37 Pulse Rate 99 04/26/25 12:37 Respiratory Rate 20 04/26/25 12:37 Blood Pressure 142/95 H 04/26/25 12:37 Pulse Oximetry 96 04/26/25 12:37 Oxygen Delivery Room Air 04/26/25 12:37 Reviewed. MDM - Dental/Oral MDM Narrative Medical decision making narrative: I evaluated this in the express care. History is obtained from patient who is an independent historian and physical exam was performed.? Available medical records were reviewed. ? Exam findings and relevant testing show no acute concerns or changes; patient is non-toxic appearing and is in no distress. Patients pain and complaint coupled with physical findings are consistant with dentalgia. There are no focal signs of space occupying lesions that are compromising to the airway; no dysphagia, odynophagia, dysphonia, or dyspnea. No uvular deviation or soft palate edema. Patient is non-toxic appearing. The floor of the mouth is soft with no signs of Roshan's Angina; no induration below mandible, no neck pain. Patient is without trismus or drooling and able to swallow secretions. Patient is felt appropriate for discharge home with dental follow up. ? Differential diagnosis and treatment plan were discussed with the patient. Patient agrees with discussion and after shared medical decision making agrees with plan of care. All questions were answered to the patient's satisfaction. Patient is appropriate for outpatient treatment and follow-up. Differential Diagnosis Differential diagnosis: Likely gingival abscess, dental caries, toothache, dental abscess, fracture of tooth and aphthous ulcer Critical Care Time Critical Care Time Critical Care Time: No Discharge Plan Discharge Clinical Impression: Dental abscess Patient Disposition: Home Condition: Stable Instructions: Antibiotic Form, Dental Abscess (ED) Additional Instructions: Take antibiotic as directed Avoid temperature extremes May apply heat or ice to the face Gentle brushing and flossing Take 2 extra strength Tylenol, 4 ibuprofen, 80 mg of caffeine at same time. You can do this every 6 hours. Do not do this for more than 2 - 3 days. You can substitute 25 mg Benadryl at nighttime for caffeine to help you sleep. Do this for no more than 3 days. Follow-up with the dentist as soon as possible - see the list provided Patient Language: Latvian Prescriptions: New clindamycin HCl 300 mg capsule 300 mg PO Q8H 7 Days Qty: 21 0RF Follow-up/Referrals: UNKNOWN,DOCTOR [Primary Care Provider] Time of Disposition: 12:47
== END 2025-04-26 12:50 | disposition home or self-care (01) ==
PROVIDERS: Emergency Provider Nurse Practitioner
DX: K04.7 Periapical abscess without sinus (principal); F17.210 Nicotine dependence, cigarettes, uncomplicated; F12.90 Cannabis use, unspecified, uncomplicated; Z86.718 Personal history of other venous thrombosis and embolism
CPT/HCPCS: 99213; G0463